=== PATIENT | male | born 1980 | race African-American/Black ===

== ENCOUNTER 2017-02-25 11:22 | Inpatient (IN) | payer OTHER ==
[2017-02-25 11:53] LABS: ADD MAN DIFF? NO
[2017-02-25 11:55] LABS: BASO # 0.1 x10^3/uL (0.0-0.2); BASO % 1 % (0-3); EOS % 0 % (0-3); HEMATOCRIT 44.3 % (39.0-53.0); HEMOGLOBIN 14.5 g/dL (13.0-17.5); LYMPH # 3.4 x10^3/uL (1.0-4.8); LYMPH % 33 % (24-48); MEAN CORPUSCULAR HEMOGLOBIN 29 pg (25-35); MEAN CORPUSCULAR HGB CONC 33 g/dL (31-37); MEAN CORPUSCULAR VOLUME 88 fL (79-100); MONO # 0.9 x10^3/uL (0.0-1.1); MONO % 9 % (0-9); NEUT # 5.8 x10^3uL (1.8-7.7); NEUT % 57 % (31-73); PLATELET COUNT 265 x10^3/uL (140-400); RED BLOOD COUNT 5.05 x10^6/uL (4.30-5.70); RED CELL DISTRIBUTION WIDTH 13.5 % (11.5-14.5); WHITE BLOOD COUNT 10.2 x10^3/uL (4.0-11.0)
[2017-02-25] MEDS: ONDANSETRON PF 4 MG/2 ML VIAL. IV (12:01)
[2017-02-25] MEDS: IV NORMAL SALINE 1000ML BAG 1,000 ML IV ×2 (12:01→14:42)
[2017-02-25 12:07] LABS: ANION GAP 10 (6-14); BLOOD UREA NITROGEN 9 mg/dL (8-26); BUN/CREATININE RATIO 6 (6-20); CALCIUM 8.9 mg/dL (8.5-10.1); CARBON DIOXIDE 28 mmol/L (21-32); CHLORIDE 104 mmol/L (98-107); CREATININE 1.4 mg/dL (0.7-1.3); GFR 57.7; GLUCOSE 109 mg/dL (70-99); POTASSIUM 3.8 mmol/L (3.5-5.1); SODIUM 142 mmol/L (136-145)
[2017-02-25 12:13] LABS: ALBUMIN 3.4 g/dL (3.4-5.0); ALBUMIN/GLOBULIN RATIO 0.7 (1.0-1.7); ALK PHOS 66 U/L (46-116); ALT (SGPT) 35 U/L (16-63); AST (SGOT) 27 U/L (15-37); MAGNESIUM 2.3 mg/dL (1.8-2.4); TOTAL BILIRUBIN 0.6 mg/dL (0.2-1.0); TOTAL PROTEIN 8.2 g/dL (6.4-8.2)
[2017-02-25 12:16] LABS: TROPONINI < 0.017 ng/mL (0.000-0.055)
[2017-02-25 12:21] LABS: NT-PRO BNP 191 pg/mL (0-124)
[2017-02-25 12:21] LABS: CKMB MASS < 0.5 ng/mL (0.0-3.6); CREATINE KINASE 413 U/L (39-308)
[2017-02-25 12:46] LABS: D-DIMER 13.35 ug/mlFEU (0.00-0.50)
[2017-02-25 12:48] LABS: BILIRUBIN,URINE SMALL (NEG); CLARITY,URINE CLEAR; COLOR,URINE AMBER; GLUCOSE,URINE NEGATIVE (NEG); NITRITE,URINE NEGATIVE (NEG); PROTEIN,URINE 30 mg/dL (NEG-TRACE)
[2017-02-25 12:59] LABS: BACTERIA,URINE 0 /HPF (0-FEW); RBC,URINE 0 /HPF (0-2); WBC,URINE 0 /HPF (0-4)
[2017-02-25 13:00] LABS: SQUAMOUS EPITHELIAL CELL,UR FEW /LPF
[2017-02-25] MEDS ORDERED: CONTRAST GIVEN MC (13:00)
[2017-02-25] MEDS: IOHEXOL 300 MG/ML 100ML VIAL. IV (13:03)
[2017-02-25] MEDS ORDERED: HEPARIN for IV BOLUS 10,000 UNIT/10 ML VIAL. IV ×2 (13:30)
[2017-02-25 13:32] LABS: LACTIC ACID 1.1 mmol/L (0.4-2.0)
[2017-02-25] MEDS: HEPARIN for IV BOLUS 10,000 UNIT/10 ML VIAL. IV (13:49)
[2017-02-25] MEDS: HEPARIN 25,000UTS/500ML PREMIX 500 ML IV (13:54)
[2017-02-25] MEDS ORDERED: ONDANSETRON PF 4 MG/2 ML VIAL. IV ×2 (14:00→14:15)
[2017-02-25] MEDS ORDERED: ACETAMINOPHEN 325 MG TABLET. PO (14:00)
[2017-02-25 14:36] LABS: INR 1.1 (0.8-1.1); PROTHROMBIN TIME PATIENT 13.9 SEC (11.7-14.0)
[2017-02-25] MEDS: fentaNYL PF VIAL 100 MCG/2 ML VIAL IV ×2 (14:42→17:10)
[2017-02-25] MEDS: LABETALOL 20 MG/4 ML DISP.SYRIN. IVP (16:05)
[2017-02-25] MEDS ORDERED: WARFARIN 7.5 MG TABLET. PO (17:00)
[2017-02-25] MEDS: ENALAPRILAT 1.25 MG/ML VIAL. IV (18:26)
[2017-02-25 20:17] LABS: UNFRACTIONATED HEPARIN TESTING 0.71 IU/mL (0.30-0.70)
[2017-02-25] MEDS: guaiFENesin ORAL 200 MG/10 ML LIQUID. PO (22:40)
[2017-02-26] MEDS: IV NORMAL SALINE 1000ML BAG 1,000 ML IV ×2 (01:09→08:49)
[2017-02-26] MEDS: fentaNYL PF VIAL 100 MCG/2 ML VIAL IV ×2 (01:09→12:06)
[2017-02-26] MEDS: guaiFENesin ORAL 200 MG/10 ML LIQUID. PO ×4 (02:43→15:59)
[2017-02-26 03:12] LABS: UNFRACTIONATED HEPARIN TESTING 0.44 IU/mL (0.30-0.70)
[2017-02-26 03:59] LABS: INR 1.3 (0.8-1.1); PROTHROMBIN TIME PATIENT 15.1 SEC (11.7-14.0)
[2017-02-26] MEDS: HEPARIN 25,000UTS/500ML PREMIX 500 ML IV (04:24)
[2017-02-26 05:20] LABS: ADD MAN DIFF? NO
[2017-02-26 05:41] LABS: BASO % 0 % (0-3); EOS % 0 % (0-3); HEMATOCRIT 36.2 % (39.0-53.0); HEMOGLOBIN 11.9 g/dL (13.0-17.5); LYMPH # 2.9 x10^3/uL (1.0-4.8); LYMPH % 36 % (24-48); MEAN CORPUSCULAR HEMOGLOBIN 29 pg (25-35); MEAN CORPUSCULAR HGB CONC 33 g/dL (31-37); MEAN CORPUSCULAR VOLUME 87 fL (79-100); MONO % 12 % (0-9); NEUT # 4.1 x10^3uL (1.8-7.7); NEUT % 52 % (31-73); PLATELET COUNT 220 x10^3/uL (140-400); RED BLOOD COUNT 4.15 x10^6/uL (4.30-5.70); RED CELL DISTRIBUTION WIDTH 13.5 % (11.5-14.5)
[2017-02-26 06:29] LABS: ANION GAP 12 (6-14); BLOOD UREA NITROGEN 10 mg/dL (8-26); CALCIUM 7.8 mg/dL (8.5-10.1); CARBON DIOXIDE 24 mmol/L (21-32); CHLORIDE 104 mmol/L (98-107); GFR 102.9; GLUCOSE 94 mg/dL (70-99); POTASSIUM 4.2 mmol/L (3.5-5.1); SODIUM 140 mmol/L (136-145)
[2017-02-26 06:34] LABS: CHOLESTEROL 163 mg/dL (0-200); HDLC 26 mg/dL (40-60); LDLC 123 mg/dL (0-100); NON-HDL CHOLESTEROL 137 mg/dL (0-129); TRIGLYCERIDES 70 mg/dL (0-150); VLDLC 14 mg/dL (0-40)
[2017-02-26 06:35] LABS: CHOLESTEROL/HDL RATIO 6.3
[2017-02-26] MEDS: LABETALOL 20 MG/4 ML DISP.SYRIN. IVP ×2 (07:20→14:44)
[2017-02-26 08:39] LABS: UNFRACTIONATED HEPARIN TESTING 0.35 IU/mL (0.30-0.70)
[2017-02-26] MEDS: PANTOPRAZOLE 40 MG TABLET.DR. PO (08:49)
[2017-02-26] MEDS: hydroCHLOROthiazide 25 MG TABLET PO (09:39)
[2017-02-26] MEDS: LISINOPRIL 5 MG TABLET. PO (09:39)
[2017-02-26] MEDS: ENALAPRILAT 1.25 MG/ML VIAL. IV (12:05)
[2017-02-26] MEDS: cefTRIAXone IV Push 1 GM VIAL. IVP (13:14)
[2017-02-26] MEDS: ANTI-COAG MONITOR BY PHARMACY. MC (14:06)
[2017-02-26] MEDS: APIXABAN 5 MG TABLET. PO (17:46)
[2017-02-26] MEDS: oxyCODONE/APAP 5/325 1 TAB TABLET PO (17:47)
[2017-02-26 21:08] LABS: MRSA BY PCR Negative (Negative)
[2017-02-27 02:08] LABS: HOMOCYSTINE LEVEL 13.1 umol/L (0.0-15.0)
[2017-02-27] MEDS: PANTOPRAZOLE 40 MG TABLET.DR. PO (06:08)
[2017-02-27 06:10] LABS: ADD MAN DIFF? NO
[2017-02-27 06:28] LABS: BASO % 0 % (0-3); EOS % 0 % (0-3); HEMATOCRIT 38.6 % (39.0-53.0); HEMOGLOBIN 12.8 g/dL (13.0-17.5); LYMPH # 2.5 x10^3/uL (1.0-4.8); LYMPH % 29 % (24-48); MEAN CORPUSCULAR HEMOGLOBIN 29 pg (25-35); MEAN CORPUSCULAR HGB CONC 33 g/dL (31-37); MEAN CORPUSCULAR VOLUME 86 fL (79-100); MONO % 12 % (0-9); NEUT % 58 % (31-73); PLATELET COUNT 249 x10^3/uL (140-400); RED BLOOD COUNT 4.48 x10^6/uL (4.30-5.70); RED CELL DISTRIBUTION WIDTH 13.5 % (11.5-14.5); WHITE BLOOD COUNT 8.6 x10^3/uL (4.0-11.0)
[2017-02-27] MEDS: hydroCHLOROthiazide 25 MG TABLET PO (08:48)
[2017-02-27] MEDS: APIXABAN 5 MG TABLET. PO ×2 (08:48→20:13)
[2017-02-27] MEDS: amLODIPine BESYLATE 5 MG TABLET PO (08:50)
[2017-02-27] MEDS: LISINOPRIL 20 MG TABLET PO (09:56)
[2017-02-27] MEDS: LACTOBACILLUS RHAMNOSUS GG 1 CAPSULE. PO ×2 (09:57→20:13)
[2017-02-27] MEDS: cefTRIAXone IV Push 1 GM VIAL. IVP (11:48)
[2017-02-27] MEDS: ANTI-COAG MONITOR BY PHARMACY. MC (13:19)
[2017-02-27] MEDS: VANCOMYCIN 2 GM in IV DEXTROSE 5 %-0.2 % NACL 500 ML IV (15:16)
[2017-02-27] MEDS: VANCOMYCIN PER PHARMACY MC ×3 (15:26→15:45)
[2017-02-27] MEDS: guaiFENesin ORAL 200 MG/10 ML LIQUID. PO ×2 (16:09→20:12)
[2017-02-27] MEDS: fentaNYL PF VIAL 100 MCG/2 ML VIAL IV ×2 (19:37→23:37)
[2017-02-27] MEDS: SIMVASTATIN 10 MG TABLET PO (20:13)
[2017-02-28] MEDS: VANCOMYCIN 1.75 GM in IV DEXTROSE 5 %-0.2 % NACL 500 ML IV (03:06)
[2017-02-28 07:34] LABS: HOMOCYSTINE LEVEL 13.6 umol/L (0.0-15.0)
[2017-02-28 07:38] LABS: ANION GAP 7 (6-14); BLOOD UREA NITROGEN 12 mg/dL (8-26); CALCIUM 8.8 mg/dL (8.5-10.1); CARBON DIOXIDE 30 mmol/L (21-32); CHLORIDE 101 mmol/L (98-107); CREATININE 1.1 mg/dL (0.7-1.3); GFR 92.2; GLUCOSE 92 mg/dL (70-99); POTASSIUM 3.8 mmol/L (3.5-5.1); SODIUM 138 mmol/L (136-145)
[2017-02-28] MEDS: APIXABAN 5 MG TABLET. PO ×2 (08:17→20:51)
[2017-02-28] MEDS: LACTOBACILLUS RHAMNOSUS GG 1 CAPSULE. PO ×2 (08:17→20:51)
[2017-02-28] MEDS: hydroCHLOROthiazide 25 MG TABLET PO (08:18)
[2017-02-28] MEDS: LISINOPRIL 20 MG TABLET PO (08:18)
[2017-02-28] MEDS: PANTOPRAZOLE 40 MG TABLET.DR. PO (08:30)
[2017-02-28] MEDS: amLODIPine BESYLATE 5 MG TABLET PO (09:25)
[2017-02-28] MEDS: VANCOMYCIN PER PHARMACY MC (11:29)
[2017-02-28] MEDS: cefTRIAXone IV Push 1 GM VIAL. IVP (12:32)
[2017-02-28] MEDS: IV NORMAL SALINE 1000ML BAG 500 ML IV (13:21)
[2017-02-28] MEDS: ANTI-COAG MONITOR BY PHARMACY. MC (16:15)
[2017-02-28] MEDS: IV NORMAL SALINE 1000ML BAG 1,000 ML IV (16:45)
[2017-02-28] MEDS: guaiFENesin ORAL 200 MG/10 ML LIQUID. PO (17:43)
[2017-02-28] MEDS: SIMVASTATIN 10 MG TABLET PO (20:50)
[2017-02-28] MEDS: oxyCODONE/APAP 5/325 1 TAB TABLET PO (20:51)
[2017-03-01 04:05] LABS: ADD MAN DIFF? NO
[2017-03-01 04:12] LABS: BASO % 1 % (0-3); EOS % 0 % (0-3); HEMATOCRIT 39.4 % (39.0-53.0); HEMOGLOBIN 12.8 g/dL (13.0-17.5); LYMPH # 2.1 x10^3/uL (1.0-4.8); LYMPH % 38 % (24-48); MEAN CORPUSCULAR HEMOGLOBIN 29 pg (25-35); MEAN CORPUSCULAR HGB CONC 33 g/dL (31-37); MEAN CORPUSCULAR VOLUME 88 fL (79-100); MONO # 0.7 x10^3/uL (0.0-1.1); MONO % 12 % (0-9); NEUT # 2.7 x10^3uL (1.8-7.7); NEUT % 48 % (31-73); PLATELET COUNT 291 x10^3/uL (140-400); RED BLOOD COUNT 4.48 x10^6/uL (4.30-5.70); RED CELL DISTRIBUTION WIDTH 13.1 % (11.5-14.5); WHITE BLOOD COUNT 5.5 x10^3/uL (4.0-11.0)
[2017-03-01 04:22] LABS: ANION GAP 12 (6-14); BLOOD UREA NITROGEN 10 mg/dL (8-26); CALCIUM 8.2 mg/dL (8.5-10.1); CARBON DIOXIDE 27 mmol/L (21-32); CHLORIDE 100 mmol/L (98-107); GFR 102.9; GLUCOSE 90 mg/dL (70-99); SODIUM 139 mmol/L (136-145)
[2017-03-01] MEDS: APIXABAN 5 MG TABLET. PO ×2 (09:11→21:38)
[2017-03-01] MEDS: hydroCHLOROthiazide 25 MG TABLET PO (09:11)
[2017-03-01] MEDS: PANTOPRAZOLE 40 MG TABLET.DR. PO (09:11)
[2017-03-01] MEDS: amLODIPine BESYLATE 5 MG TABLET PO (09:12)
[2017-03-01] MEDS: LACTOBACILLUS RHAMNOSUS GG 1 CAPSULE. PO ×2 (09:12→21:39)
[2017-03-01] MEDS: LISINOPRIL 20 MG TABLET PO (09:12)
[2017-03-01 10:46] LABS: FREE T4 1.22 ng/dL (0.76-1.46)
[2017-03-01] MEDS: METOPROLOL SUCC 24HR ER 25 MG TAB.ER.24H. PO (15:18)
[2017-03-01] MEDS: guaiFENesin ORAL 200 MG/10 ML LIQUID. PO (17:50)
[2017-03-01] MEDS: SIMVASTATIN 10 MG TABLET PO (21:38)
[2017-03-01] MEDS: oxyCODONE/APAP 5/325 1 TAB TABLET PO (21:40)
[2017-03-02] MEDS: ANTI-COAG MONITOR BY PHARMACY. MC (08:51)
[2017-03-02] MEDS: PANTOPRAZOLE 40 MG TABLET.DR. PO (08:53)
[2017-03-02] MEDS: LACTOBACILLUS RHAMNOSUS GG 1 CAPSULE. PO (08:53)
[2017-03-02] MEDS: METOPROLOL SUCC 24HR ER 25 MG TAB.ER.24H. PO (08:54)
[2017-03-02] MEDS: APIXABAN 5 MG TABLET. PO (08:54)
[2017-03-02] MEDS: hydroCHLOROthiazide 25 MG TABLET PO (08:55)
[2017-03-02] MEDS: LISINOPRIL 20 MG TABLET PO (08:55)
[2017-03-02 11:18] LABS: CARDIOLIPIN ANTIBODIES SEE SEPARATE REPORT
[2017-03-05] MEDS ORDERED: APIXABAN 5 MG TABLET. PO (21:00)
== END 2017-03-02 12:15 | disposition home or self-care (01) | DRG 682 ==
LOC: 2 NORTH 02-26 19:52 → ER 11:22 → 1 WEST ICU 13:53
DX: N17.0 Acute kidney failure with tubular necrosis (principal); I26.99 Other pulmonary embolism without acute cor pulmonale; J96.21 Acute and chronic respiratory failure with hypoxia; I47.1 Supraventricular tachycardia; I27.20 Pulmonary hypertension, unspecified; N18.4 Chronic kidney disease, stage 4 (severe); R79.1 Abnormal coagulation profile; E78.5 Hyperlipidemia, unspecified; F17.210 Nicotine dependence, cigarettes, uncomplicated; I16.0 Hypertensive urgency; J06.9 Acute upper respiratory infection, unspecified; I12.9 Hypertensive chronic kidney disease with stage 1 through stage 4 chronic kidney disease, or unspecified chronic kidney disease
CPT/HCPCS: 36415; 71045; 71275; 80048; 80053; 80061; 81001; 82553; 83090; 83605; 83735; 83880; 84439; 84484; 85025; 85220; 85379; 85520; 85610; 86147; 87040; 87205; 87641; 93005; 93306; 93970; 94618; 96361; 96374; 96375; 99291; 99291-25; J0696; J1644; J2405; J3010; J3370; J3490; J7030; Q9967

== ENCOUNTER → 2017-04-07 | Outpatient (CLI) | payer OTHER ==
[~2017-04-07] MED LIST: CONTRAST GIVEN MC
[2017-04-07] MEDS: IOHEXOL 300 MG/ML 100ML VIAL. IV ×2 (10:01)
== END | disposition home or self-care (01) ==
LOC: CT 09:49
DX: R07.9 Chest pain, unspecified (principal); R91.8 Other nonspecific abnormal finding of lung field; Z86.711 Personal history of pulmonary embolism
CPT/HCPCS: 71275; Q9967

== ENCOUNTER → 2017-06-26 | Outpatient (CLI) | payer OTHER ==
[2017-06-26] MEDS: IOHEXOL 300 MG/ML 100ML VIAL. IV (08:04)
== END | disposition home or self-care (01) ==
LOC: CT 07:31
DX: J98.11 Atelectasis (principal); I36.1 Nonrheumatic tricuspid (valve) insufficiency; I27.20 Pulmonary hypertension, unspecified; I12.9 Hypertensive chronic kidney disease with stage 1 through stage 4 chronic kidney disease, or unspecified chronic kidney disease; N18.4 Chronic kidney disease, stage 4 (severe); Z86.711 Personal history of pulmonary embolism
CPT/HCPCS: 71275; 93306; Q9967